=== PATIENT | male | born 1985 | race Two or more races ===

== ENCOUNTER → 2016-05-20 | Outpatient (REF) | payer MEDICAID | LOC: M SMT 17:04 | PROVIDERS: ATTEND Nurse Practitioner Family | DX: N50.9 Disorder of male genital organs, unspecified (principal) ==

== ENCOUNTER → 2016-06-15 | Day surgery (SDC) | payer MEDICAID ==
[~2016-06-15] VITALS: Ht 180.3 cm; Wt 62.1 kg
[~2016-06-15] MED LIST: ADV250INH INH; ALBUTEROL SULFATE 2.5 MG/0.5 ML INH NEB SOLN As Ordered ONE; ALBUTEROL SULFATE 2.5 MG/0.5 ML INH NEB SOLN INH ONE; BUPIVACAINE HCL 0.25% 30 ML VIAL As Ordered ONE; DIVA250T PO; HYDROmorphone HCL 1 MG/ML SYRINGE (J1170) IV PRN; KETOROLAC 60 MG/2 ML VIAL (J1885) As Ordered ONE; LIDOCAINE 1% SDV INJ 30 ML VIAL As Ordered ONE; LIDOCAINE 2% INJ 100 MG/5 ML SDV (FOR ANES.) As Ordered ONE; LR 1,000 ML IV SCH; METOCLOPRAMIDE INJ 10MG/2ML VIAL (J2765) As Ordered ONE; MIDAZOLAM INJ 2 MG/2 ML VIAL (J2250) As Ordered ONE; MIDAZOLAM INJ 2 MG/2 ML VIAL (J2250) IV ONE; NAPR500T2 PO; OMEP40CA2 PO; ONDANSETRON 4MG/2ML VIAL (J2405) As Ordered ONE; ONDANSETRON 4MG/2ML VIAL (J2405) IV PRN; PERCOCET 5MG/325MG TAB PO PRN; PROA1AER INH; PROPOFOL 200 MG/20 ML VIAL As Ordered ONE; fentaNYL 100 MCG/2 ML INJECTION (J3010) As Ordered ONE; fentaNYL 100 MCG/2 ML INJECTION (J3010) IV PRN
[2016-06-15 18:00] VITALS: BP 128/70
--- NOTE | 2016-06-16 17:16 | RO ---
DATE OF PROCEDURE: 06/15/2016 PREPROCEDURE DIAGNOSIS: Left epididymal cyst. POSTPROCEDURE DIAGNOSIS: Left epididymal cyst. PROCEDURE: Left scrotal exploration and removal of epididymal cyst. SURGEON: Ryan Witt MD CIVIL ENGINEERING TECHNICIAN: None. ANESTHESIA: General. OPERATIVE INDICATIONS: This is a 30-year-old male who was recently found to have a 1 cm left epididymal cyst. The patient noted that he had a moderate amount of pain associated with the cyst and, therefore, requested to have it removed today. DESCRIPTION OF PROCEDURE: Patient was brought to the operating room and general anesthesia induced. Prophylactic antibiotics were infused. He was then placed in the supine position and prepped and draped in the usual sterile fashion. An approximately 3 cm transverse incision was made over the left hemiscrotum. We then dissected down through the scrotal wall layers and delivered the testicle out of the tunica vaginalis. Although the testicle appeared normal, there was a 1 cm cyst on the head of the epididymis. The cyst was then carefully dissected off the epididymis with a combination of Bovie electrocautery and scissors. Ultimately, the cyst was transected off the head of the epididymis after the stalk of it was suture ligated with a #3-0 chromic suture. At this point, we checked for hemostasis and hemostasis appeared excellent. The testicle was then delivered back within the left hemiscrotum in its normal anatomic position. The dartos was then closed with a running #3-0 chromic stitch. We then closed skin with interrupted #2-0 chromic stitch. Local anesthesia was then applied and dressings were applied, and this marked the conclusion of the procedure. The patient was then awakened from anesthesia and transported to the recovery room in stable condition. ESTIMATED BLOOD LOSS: 5 mL. COMPLICATIONS: None. SPECIMENS: Left epididymal cyst. PLAN: The patient will followup in clinic in a few weeks for a postoperative visit.
== END | disposition home or self-care (01) ==
LOC: M SDC 11:35
PROVIDERS: ATTEND Urology
DX: N50.3 Cyst of epididymis (principal); R56.9 Unspecified convulsions; M54.9 Dorsalgia, unspecified; K21.9 Gastro-esophageal reflux disease without esophagitis; R06.02 Shortness of breath; F17.290 Nicotine dependence, other tobacco product, uncomplicated; Z79.899 Other long term (current) drug therapy
CPT/HCPCS: 54840; 88305; J0690; J2250; J2405; J2765; J3010

== ENCOUNTER 2021-03-31 16:57 | Emergency (ER) | payer MEDICAID, OTHER ==
[~2021-03-31] VITALS: Ht 177.8 cm; Wt 66.0 kg
[~2021-03-31 16:57] MED LIST changes: -ALBUTEROL SULFATE 2.5 MG/0.5 ML INH NEB SOLN As Ordered ONE; -ALBUTEROL SULFATE 2.5 MG/0.5 ML INH NEB SOLN INH ONE; -BUPIVACAINE HCL 0.25% 30 ML VIAL As Ordered ONE; -DIVA250T PO; +DIVA250T67 PO; -HYDROmorphone HCL 1 MG/ML SYRINGE (J1170) IV PRN; -KETOROLAC 60 MG/2 ML VIAL (J1885) As Ordered ONE; -LIDOCAINE 1% SDV INJ 30 ML VIAL As Ordered ONE; -LIDOCAINE 2% INJ 100 MG/5 ML SDV (FOR ANES.) As Ordered ONE; -LR 1,000 ML IV SCH; -METOCLOPRAMIDE INJ 10MG/2ML VIAL (J2765) As Ordered ONE; -MIDAZOLAM INJ 2 MG/2 ML VIAL (J2250) As Ordered ONE; -MIDAZOLAM INJ 2 MG/2 ML VIAL (J2250) IV ONE; +NAPR-885 PO; -NAPR500T2 PO; -OMEP40CA2 PO; +OMEP40CA4 PO; -ONDANSETRON 4MG/2ML VIAL (J2405) As Ordered ONE; -ONDANSETRON 4MG/2ML VIAL (J2405) IV PRN; -PERCOCET 5MG/325MG TAB PO PRN; -PROA1AER INH; +PROAAER10 INH; -PROPOFOL 200 MG/20 ML VIAL As Ordered ONE; -fentaNYL 100 MCG/2 ML INJECTION (J3010) As Ordered ONE; -fentaNYL 100 MCG/2 ML INJECTION (J3010) IV PRN
[2021-03-31 16:58] VITALS: BP 134/94
[2021-03-31] MEDS ORDERED: MIRA0.5T PO (17:06)
== END 2021-03-31 21:05 | disposition left against medical advice (07) ==
LOC: M ED 16:57
DX: N50.89 Other specified disorders of the male genital organs (principal); R56.9 Unspecified convulsions; G25.81 Restless legs syndrome; Z79.899 Other long term (current) drug therapy; F17.210 Nicotine dependence, cigarettes, uncomplicated; F12.20 Cannabis dependence, uncomplicated

== ENCOUNTER → 2022-10-07 | Outpatient (CLI) | payer MEDICAID, OTHER ==
[~2022-10-07] MED LIST changes: +MIRA0.5T PO
== END ==
LOC: M RAD 10:21
PROVIDERS: ATTEND Internal Medicine
DX: M54.9 Dorsalgia, unspecified (principal)